=== PATIENT | male | born 1950 | race Caucasian/White ===

== ENCOUNTER → 2017-11-09 | Outpatient (CLI) | payer MEDICARE, OTHER ==
[2014-02-04 09:24] VITALS: BMI 32.3
[~2017-11-09] MED LIST: ACE3 PO; ACET-3017 PO; ACYC800T99 PO; ADV100/50 INH; ALBU4TAB37 PO; ALCO1MED TP; ALL100 PO; ANOTHER DIABETIC MED; ASPI-1441 PO; ATOR10TA65 PO; ATOR20TA22 PO; ATOR20TA65 PO; AZIT-1 PO; AZIT500T47 PO; BLOO-1777 MC; BLOO1STR16 MC; CEF300 PO; CEFU500T10 PO; CLO5 PO; CLON0.5T66 PO; COM14R INH; DEXL30CA5 PO; DEXL60CA6 PO; DOCU-416 PO; DUL30 PO; DULO60CA56 PO; DULO60CA7 PO; ESOM40CA42 PO; FLU45SYR17 IM; GAB300 PO; GABA-549 PO; GLUC1KIT4 IJ; HYDR-385 PO; IBU200 PO; IBU600 PO; INSU100I35 INJ; INSU100I35 SQ; INSU100I36 INJ; INSU100I36 SQ; INSU300I SQ; IPRA4AER IH; LANC-1295 MC; LEV500 PO; LEV88 PO; LEVI SQ; LEVI SUBQ; LEVO-3 PO; LEVO750T44 PO; LID5T TOP; LOR5 PO; LOR5/325 PO; MOMR; MON10 PO; MONT10TA22 PO; MONT10TA4 PO; NAPR220C12 PO; NOR25 PO; NORT50CA40 PO; NOVOLOG SQ; OMEG500C5 PO; ONDA4TAB PO; PER PO; PNEU0.5D3 IM; PRE1 PO; PRE20 PO; PROC-35 PO; RAM25 PO; RANI-320 PO; TRIA15CR40 TOP; VENL75CA58 PO; [UNRECOGNIZED DRUG - CODE] PO; [UNRECOGNIZED DRUG - CODE] PO; [UNRECOGNIZED DRUG - CODE] PO; multivit
[2017-11-09 10:23] LABS: LDL CHOLESTEROL 59 mg/dl
== END ==
LOC: LAB 07:42
PROVIDERS: ATTEND Internal Medicine Endocrinology, Diabetes & Metabolism
DX: E10.49 Type 1 diabetes mellitus with other diabetic neurological complication (principal)
CPT/HCPCS: 36415; 82043; 82310; 82374; 82435; 82465; 82565; 82570; 82947; 83036; 83718; 84132; 84295; 84443; 84478; 84520

== ENCOUNTER → 2018-02-08 | Outpatient (CLI) | payer MEDICARE, OTHER ==
[2014-02-04 09:24] VITALS: BMI 32.3
== END ==
LOC: LAB 10:24
PROVIDERS: ATTEND Internal Medicine Endocrinology, Diabetes & Metabolism
DX: E10.65 Type 1 diabetes mellitus with hyperglycemia (principal); E03.8 Other specified hypothyroidism; E06.3 Autoimmune thyroiditis
CPT/HCPCS: 36415; 82310; 82374; 82435; 82565; 82947; 83036; 84132; 84295; 84443; 84520

== ENCOUNTER → 2018-06-16 | Outpatient (CLI) | payer MEDICARE, OTHER ==
[2014-02-04 09:24] VITALS: BMI 32.3
[2018-06-16 11:28] LABS: LDL CHOLESTEROL 44 mg/dl
== END ==
LOC: LAB 10:49
PROVIDERS: ATTEND Internal Medicine Endocrinology, Diabetes & Metabolism
DX: E10.49 Type 1 diabetes mellitus with other diabetic neurological complication (principal)
CPT/HCPCS: 36415; 82043; 82310; 82374; 82435; 82465; 82565; 82947; 83036; 83718; 84132; 84295; 84478; 84520

== ENCOUNTER → 2019-01-16 | Outpatient (CLI) | payer MEDICARE, OTHER ==
[2014-02-04 09:24] VITALS: BMI 32.3
== END ==
LOC: LAB 13:39
PROVIDERS: ATTEND Internal Medicine Endocrinology, Diabetes & Metabolism
DX: E10.49 Type 1 diabetes mellitus with other diabetic neurological complication (principal); E03.8 Other specified hypothyroidism; E06.3 Autoimmune thyroiditis
CPT/HCPCS: 36415; 82040; 82247; 82310; 82374; 82435; 82565; 82947; 83036; 84075; 84132; 84155; 84295; 84443; 84450; 84460; 84520